=== PATIENT | male | born 1995 | race Caucasian/White ===

== ENCOUNTER 2018-06-02 17:51 | Emergency (ER) | payer OTHER ==
[~2018-06-02] VITALS: Ht 182.8 cm; Wt 106.6 kg
--- NOTE | ~2018-06-02 | EKG ---
[place], [place] ELECTROCARDIOGRAM REPORT NAME: GEMA RAINEY UNIT #: [id number] ROOM: DOCTOR: EPIPHANY DRAFT REPORT BIRTHDATE: [birth year] [facility] Test Date: 2018-06-02 Test Time: 18:11:34 Pat Name: GEMA RAINEY Department: Room: Gender: Poker Manager: Kelsey Dyer : 1995 Requested By: RENATE MCKNIGHT Order Number: [id number] Reading MD: Slim Jacobs MD Measurements Intervals [place]kinson Rate: 93 P: 71 PA: 162 QRS: 81 QRSD: 93 T: 43 QT: 338 QTc: 421 Interpretive Statements Sinus rhythm ST elev, probable normal early repol pattern No previous ECG available for comparison Electronically Signed On 06-03-2018 16:08:19 PST by Slim Jacobs MD CM:EKGRPT:ELECTROCARDIOGRAM REPORT [id number] RENATE MCKNIGHT EPIPHANY DRAFT REPORT RENATE MCKNIGHT
[~2018-06-02 17:51] MED LIST: KEFLEX500 MG PO
[2018-06-02 18:52] LABS: BASO # 0.1 10*3/uL (0.0-0.1); BASO % 0.8 % (0.0-1.0); EOS # 0.1 10*3/uL (0.0-0.4); EOS % 0.9 % (1.0-4.0); HEMATOCRIT 45.5 % (42.0-52.0); HEMOGLOBIN 15.9 g/dl (14.0-18.0); LYMPH # 2.1 10*3/uL (1.3-4.4); LYMPH % 24.1 % (27.0-41.0); MEAN CELL VOLUME 89.9 fl (80.0-94.0); MEAN CORPUSCULAR HGB 31.4 pg (27.0-31.0); MEAN CORPUSCULAR HGB CONC 34.9 g/dl (33.0-37.0); MEAN PLATELET VOLUME 10.2 fl (9.6-12.3); MONO # 0.6 10*3/uL (0.1-1.0); MONO % 6.9 % (3.0-9.0); NEUT # 5.8 10*3/uL (2.3-7.9); NEUT % 67.1 % (47.0-73.0); PLATELET COUNT AUTOMATED 239 10*3/uL (130-400); RED BLOOD COUNT 5.06 10*6/uL (4.50-5.90); WHITE BLOOD COUNT 8.7 10*3/uL (4.8-10.8)
[2018-06-02 18:53] LABS: BILIRUBIN NEGATIVE (NEGATIVE); BLOOD NEGATIVE (NEGATIVE); CLARITY CLEAR (CLEAR); COLOR YELLOW (YELLOW); GLUCOSE NEGATIVE (NEGATIVE); KETONE NEGATIVE (NEGATIVE); LEUKO ESTERASE NEGATIVE (NEGATIVE); NITRITE NEGATIVE (NEGATIVE); SPECIFIC GRAVITY 1.025 (1.005-1.030); UROBILINOGEN 0.2 E.U./dl (0.2-1.0)
[2018-06-02 19:00] LABS: URINE AMPHETAMINES < 1000 (1000ng/ml); URINE BARBITURATES < 200 (200ng/ml); URINE BENZODIAZEPINES < 200 (200ng/ml); URINE CANNABINOIDS (THC) < 50 (50ng/ml); URINE COCAINE < 300 (300ng/ml); URINE METHADONE < 300 (300ng/ml); URINE OPIATES < 300 (300ng/ml)
[2018-06-02 19:02] LABS: BACTERIA TRACE; WBC 0-2 wbc/hpf (0-5)
[2018-06-02 19:08] LABS: URINE PHENCYCLIDINE < 25 (25ng/ml)
[2018-06-02 19:10] LABS: ALKALINE PHOSPHATASE 85 U/L (45-117); BUN 13 mg/dl (7-24); CHLORIDE 105 mmol/L (98-107); CREATININE 1.03 mg/dL (0.70-1.30); POTASSIUM 4.1 mmol/L (3.5-5.1); SGOT/AST 20 IU/L (3-35); SGPT/ALT 24 U/L (12-78); SODIUM 139 mmol/L (136-145); TOTAL PROTEIN 7.8 gm/dL (6.4-8.2); TROPONIN I < 0.015 ng/ml (<0.045)
[2018-06-02 19:20] VITALS: BP 111/69
== END 2018-06-02 19:39 | disposition home or self-care (01) ==
LOC: ED 17:51
PROVIDERS: Nurse Practitioner Family
DX: R00.2 Palpitations (principal)